=== PATIENT | male | born 1975 | race Caucasian/White ===

== ENCOUNTER 2017-10-16 14:21 | Emergency (ER) | payer SELFPAY ==
[2017-10-16 14:50] VITALS: BP 115/70; PULSE 77; RESP 16; TEMP 36.8; O2SAT 95
--- NOTE | 2017-10-16 15:46 | ED.GENADUL ---
Disposition Clinical Impression: Viral illness Disposition: HOME Condition: Fair Instructions: Viral Syndrome (ED) Additional Instructions: Encourage hydration. Tylenol and/or ibuprofen as needed for discomfort. Stop smoking. You may try heat or ice to affected area to help with discomfort. If you develop fever/chills, swelling, increased, and neck pain or other new/worsening symptoms please seek care urgently once again. Please follow-up with primary care in 1 week if symptoms persist. Referrals: Bryan Mcguire, [Primary Care Provider] - Medical Decision Making - Lab Data POC Strep Test-SHARAN(Rapid) Start: 10/16/17 14:49 Freq: .Rapid Strep Test Status: Active Document 10/16/17 14:57 MM (Rec: 10/16/17 14:57 MM [id number]) Strep test-SHARAN(Rapid)-POC POC-Strep test-SHARAN (Rapid) Negative - Medical Decision Making Patient presents today with chief complaint of left jaw pain. He reports that pain has been migratory for the past 3 days. The pain is been in this location since this morning. On exam, no acute abnormalities noted. Pain is not elicited with palpation. He has good range of motion of his jaw. No swelling. No discoloration. No signs of trauma. No pain with palpation of dictation. He has good bite strength with no discomfort with chewing. No nuchal rigidity. No rash. He appears nontoxic with stable vital signs. Advised that he may have a viral illness that is causing his discomfort. I do not see any signs of acute bacterial infection. I do not see evidence of infection in the salivary gland. I advised that he should try to watch and wait approach. His pain is migratory questioning if this may be just the beginning of the jaw pain and that has not been able to clear its true diagnosis as of yet. Encourage hydration. Tylenol and/or ibuprofen as needed for discomfort. We discussed new/worsening symptoms when to seek care urgently once again. All his questions and concerns were addressed and he is in agreement this plan. Advise follow-up with primary care in 1 week for reevaluation if symptoms persist. History of Present Illness - General Chief complaint: Sorethroat Stated complaint: SORE THROAT AND JAW Time Seen by Provider: 10/16/17 15:46 Source: patient, family, RN notes reviewed Mode of arrival: ambulatory Limitations: no limitations - History of Present Illness Initial comments: 21-year-old male presenting today with chief complaint of left jaw pain. He reports that he has had waxing and waning sore throat for the past 3 days. States that initially started on the left side of his throat, then migrated to the right. States that now this sore throat has subsided but he is now having some left-sided lower jaw pain. No swelling. No fevers or chills. Denies any difficulty swallowing. States he also had a low-grade headache. Denies any neck pain, no nuchal rigidity. Denies any rash. No visual change. Denies any cough. No ear pain. Denies any GI upset. Patient is an active smoker. - Related Data Multivits,Ca,Min/Iron/FA/Lycop [Centrum Ultra Men's Tablet] 1 each PO DAILY 05/29/14 Psyllium Husk (with Sugar) [Metamucil Powder] 2 tbsp PO BID PRN 03/10/16 Allergies Allergy/AdvReac Type Severity Reaction Status Date / Time No Known Allergies Allergy Unverified 10/16/17 14:54 Review of Systems Constitutional: no symptoms reported. denies: chills, fever, malaise Eyes: denies: eye pain, eye discharge ENT: as per HPI Respiratory: no symptoms reported. denies: cough, shortness of breath Cardiovascular: denies: chest pain Gastrointestinal: denies: abdominal pain, nausea, vomiting Skin: denies: rash Neurological: as per HPI Past Medical History - Past Medical History Medical history: no medical history - Social History Smoking status: current everyday smoker General Exam - General Limitations: no limitations General appearance: alert, in no apparent distress - Head Head exam: Present: atraumatic - Eye Eye exam: Present: normal apperance - ENT ENT exam: Present: normal exam, normal orophraynx, mucous membranes moist, TM's normal bilaterally, normal external ear exam, other (Patient has discomfort elicited with palpation along the lower left side of his mandible. No swelling. No discoloration. No pain with palpation of the buccal side of the gumline. No swelling under the tongue. Oropharynx is normal. No pain on palpation over the parotid gland. No swelling in this area.) - Neck Neck exam: Present: normal inspection, full ROM. Absent: tenderness, meningismus, lymphadenopathy - Respiratory Respiratory exam: Present: normal lung sounds bilaterally. Absent: respiratory distress - Cardiovascular Cardiovascular Exam: Present: regular rate, normal rhythm, normal heart sounds - Neurological Exam Neurological exam: Present: alert, normal gait - Psychiatric Psychiatric exam: Present: normal affect, normal mood - Skin Skin exam: Present: warm, dry, intact, normal color Course Vital Signs - 24 hr 10/16/17 14:50 Temperature 36.8 C Pulse 77 Respiratory 16 Rate Blood Pressure 115/70 Pulse Oximetry 95
--- NOTE | 2017-10-19 09:48 | ED.FU.B ---
- Follow Up Follow Up Plan: Patients throat cultures was positive for strep group C. I spoke with Jonathan on the phone and he states he feels well and has absolutely no pain, fevers, dyspnea or difficulty swallowing. Advised he doesn't require abx given no symptoms now, all questions answered. He was advised he could return or see his pcp if he has return of symptoms
== END 2017-10-16 15:59 | disposition home or self-care (01) ==
PROVIDERS: Emergency Provider Physician Assistant; PCP Emergency Medicine
DX: B34.9 Viral infection, unspecified (principal); R68.84 Jaw pain
CPT/HCPCS: 87880; 99283; 87081; 99282

== ENCOUNTER 2019-03-27 22:35 | Emergency (ER) | payer MEDICAID, SELFPAY ==
[2019-03-27 22:41] VITALS: BP 138/87; PULSE 99; RESP 16; TEMP 36.6; O2SAT 97
--- NOTE | 2019-03-27 23:03 | ED.GENADUL_ITS ---
Discharge Plan Disposition Patient Disposition: HOME Condition: Fair Discharge Details Chief Complaint: Nk/Back Pain Clinical Impression: Acute neck pain Primary Care Provider: Bryan Mcguire ED Provider: Aruna Albright Home Meds and New Rx's Prescriptions: Continued Centrum Ultra Men's 1 EACH tablet 1 ea PO DAILY RF: 0 Metamucil (with sugar) 822 GM powder 2 tbs PO BID PRN RF: 0 No Action amoxicillin-pot clavulanate [Augmentin] 500-125 mg tablet 1 tab PO BID Qty: 10 RF: 0 naproxen 500 mg tablet 500 mg PO BID Qty: 20 RF: 0 methocarbamol 500 mg tablet 500 mg PO QID Qty: 30 RF: 0 diazepam [Valium] 5 mg tablet 5 mg PO TID PRN (Reason: muscle spasm) Qty: 9 RF: 0 Discharge Instructions Instructions: Cyclobenzaprine (By mouth), Neck Pain (ED) Additional Instructions: Encourage water intake. Encourage gentle stretching. Massage affected area. Heat or ice. May continue with Tylenol and/or Ibuprofen as needed for discomfort. Next dosing of Ibuprofen may be at 7AM. Please do not exceed 4,000mg of Tylenol daily. Please take the Flexeril as prescribed for muscle spasm. Do not drive while taking this medication. Please follow up with primary care at the end of the week for reevaluation. Referral for ENT has been sent. If you develo fevers/chills, inability to stay hydrated or other new/worsening symptoms please seek care urgently once again Stop smoking. Referrals: Bryan Mcguire DO [Primary Care Provider] - Carlos Thomson MD [ [facility]] - Discharge Data Discharge Date/Time-TO BE ENTERED AT DEPARTURE: 03/28/19 01:20 Medical Decision Making Patient is a pleasant 43-year-old [id number] male presents today with chief complaint of left sided neck pain. He reports that he had a similar episode like this 2 weeks ago which resolved after approximately 3 days. However, patient reports that he awoke this morning with much more severe pain that has been unrelenting. He has not attempted any medical management of this. He denies any trauma. Denies any fevers or chills. Patient is not an IV drug user. He has had multiple surgeries this year without any infection of the right hand. States that the pain can radiate up to his head but is more scalp tenderness than headache. Denies any visual changes. No weakness. He endorses sore throat and difficulty swallowing with this. He denies having difficulty swallowing when he had similar symptoms 2 weeks ago. He denies any numbness or tingling in the extremities, no weakness in the extremities. Has not noted any rash. No shortness of breath or chest pain. On exam, the patient appears nontoxic. He does appear uncomfortable and is moving with a stiff neck. No palpable or visible abnormalities noted on exam. He has full flexion with no nuchal rigidity but very limited extension secondary to the pain in the left side of his neck. He does endorse midline discomfort but he seems to have have more pain over the mastoid and left anterior aspect of the neck. His lungs are clear. Neuro exam is intact. Patient's history is most consistent with muscular strain. However, with the pain coming on the anterior aspect of the pain endorsing pain and swelling, I feel that CT to evaluate for other underlying etiology is appropriate at this point. See no evidence outwardly of difficulty swallowing, he is handling secretions well. I do not see any evidence to suggest respiratory distress. No evidence of sublingual swelling, evidence of an abscess. There is no trismus. No nuchal rigidity, no evidence of meningitis. Plan for labs and imaging. Discussed this plan with patient is in agreement. Labs reviewed, patient has some more leukocytosis a white count of 12.3. Potassium slightly low at 3.2. AST is 51, patient does admit to drinking. CRP is slightly elevated at 1.08. ESR is normal at 13. CT reviewed by radiologist: FINDINGS: Nasopharynx: Unremarkable. Oropharynx: [id number] tonsillar enlargement. Hypopharynx: Unremarkable Larynx: Unremarkable. Normal epiglottis. Retropharyngeal space: Question minimal retropharyngeal fluid Submandibular/Parotid glands: Normal. Glands are normal in size. Thyroid: Normal. No enlarged or calcified nodules. Lymph nodes: Unremarkable. No lymphadenopathy. Trachea: Visualized trachea is unremarkable. Lungs: Unremarkable as visualized. Bones/joints: Unremarkable. No acute fracture. Soft tissues: No collection or mass subjacent to the radiopaque marker No significant soft tissue swelling. IMPRESSION: No collection or mass subjacent to the left-sided radiopaque marker Mild to moderate tonsillar enlargement without definite abscess Question minimal retropharyngeal fluid versus edema. Patient is feeling improved after acetaminophen, Valium, Toradol lidocaine patch. However, continues to have some mild discomfort, particular movement of the neck. Discussed the findings of the CT with Dr. Salinas. He advised that this retropharyngeal fluid versus edema is likely irritation associated with patient being a smoker. This point, I feel patient is appropriate for discharge with close follow-up. Again, symptoms are most likely associated with muscular strain. Patient however does have some mild findings on his CT and a mild leukocytosis. Discussed with Dr. Salinas if we should begin antibiotics and he advised to wait watch and wait approach at this point. Patient was given strict return precautions. Encourage hydration. Will prescribe Flexeril to help with any recurrent muscle spasm. Will refer patient to ENT for further evaluation of his findings on CT. Encourage smoking cessation. All of his questions and concerns were addressed and he is in agreement this plan. HPI General Mode of arrival: ambulatory . Date/Time Provider Initiated Documentation: 03/27/19 23:03 . Limitations to Documentation: no limitations . Information obtained by: patient and family . History of Present Illness 43 year old M presents to the emergency department with the chief complaint of left neck pain, described as severe, with intensity rated at 9. Quality is described as stabbing, and is localized to the neck. Patient reports radiation to (into the head and anterior neck). Patient started experiencing this hour(s) and it has been constant. Immobilization improves symptom(s), Movement worsens symptoms . Patient notes headaches (pain radiates to tony left side of his head); denies chest pain, cough, diaphoresis, fever/chills, loss of appetite, nausea/vomiting, rash, shortness of breath and weakness. Patient did receive the following treatments prior to arrival, none Related Data Home Medications Medication Instructions Recorded Confirmed Centrum Ultra Men's 1 ea PO DAILY 05/29/14 03/30/19 Metamucil (with sugar) 2 tbs PO BID PRN 03/10/16 03/30/19 diazepam [Valium] 5 mg PO TID PRN #9 tab 03/28/19 03/30/19 amoxicillin 500 mg-potassium 1 tab PO BID #10 tab 03/30/19 03/30/19 clavulanate 125 mg tablet methocarbamol 500 mg tablet 500 mg PO QID #30 tab 04/05/19 04/05/19 naproxen 500 mg tablet 500 mg PO BID #20 tab 04/05/19 04/05/19 Previous Rx's Medication Instructions Recorded diazepam [Valium] 5 mg PO TID PRN #9 tab 03/28/19 amoxicillin 500 mg-potassium 1 tab PO BID #10 tab 03/30/19 clavulanate 125 mg tablet methocarbamol 500 mg tablet 500 mg PO QID #30 tab 04/05/19 naproxen 500 mg tablet 500 mg PO BID #20 tab 04/05/19 Allergies Allergy/AdvReac Type Severity Reaction Status Date / Time No Known Allergies Allergy Verified 04/05/19 15:16 General Stated Complaint: Nk/Back Pain FIONA: 4 Review of Systems Constitutional Constitutional: Reports as per HPI, Denies chills, Denies fatigue, Denies fe nabor(s), Denies frequent falls and Reports headache(s) Eyes Eyes: Denies change in vision ENT Ears, Nose, Mouth, and Throat: Denies change in voice, Reports dysphagia, Denies dizziness, Denies ear discharge, Reports headache(s), Denies hoarseness, Denies mouth lesions, Denies mouth pain, Denies neck mass, Reports neck pain and Reports sore throat Cardiovascular Cardiovascular: Denies chest pain, Denies dyspnea and Denies dyspnea on exertion Respiratory Respiratory: Denies cough, Denies dyspnea and Denies dyspnea on exertion Gastrointestinal Gastrointestinal: Denies abdominal pain, Denies change in bowel habits, Reports dysphagia and Denies fecal incontinence Genitourinary Genitourinary: Reports as per HPI, Denies urinary hesitancy and Denies urinary incontinence Musculoskeletal Musculoskeletal: Reports as per HPI, Denies abnormal gait, Reports back pain (neck pain), Denies joint swelling, Reports limited range of motion, Denies muscle cramps, Denies muscle weakness, Reports neck pain, Denies numbness, Denies radiating pain into limb, Reports stiffness and Denies tingling Integumentary/Breasts Skin/Breast: Reports as per HPI and Denies rash Neurologic Neurologic: Reports as per HPI, Denies abnormal gait, Denies dizziness, Denies frequent falls, Reports headache(s), Denies focal weakness, Denies numbness, Denies radicular pain, Denies sensory deficit, Denies tingling and Denies paresthesias Endocrine Endocrine: Denies fatigue PFSH Family History Mother Hyperlipidemia Father Neoplasm LIVER/TRANSPLANT Asthma Sister No problems noted. Sister Depression Asthma Brother No problems noted. Grandfather Leukemia Grandfather Heart disease SMOKER Grandmother Heart disease HEART FAILURE/SMOKER Grandmother Stroke Son No problems noted. Son No problems noted. Social History Smoking/Tobacco Use Status: Current every day Alcohol Intake: current Alcohol Intake frequency: 0-2 drinks per day Drug use: Occasionally Substance use type: marijuana Do you feel safe at home: Yes Do you feel safe in your relationship?: Yes Exam Const General: cooperative, healthy appearing, comfortable, no acute distress, well developed and well groomed Nutritional Appearance: average body habitus and well nourished Orientation: alert and awake [facility] Head: normal to inspection, no palpable skull fracture, normocephalic, atraumatic, no scalp tenderness and no temporal artery tenderness Ears: hearing grossly normal bilaterally, external ears normal, TM's normal bilaterally, mastoids abnormal (left sided mastoid tenderness) and no periauricular adenopathy General nose exam: external nose normal Face and sinus: normal facial exam, sinuses nontender and face symmetric Mouth: oral mucosae normal, lip normal, tongue normal, salivary ducts normal, oropharynx normal, moist mucous membranes, no muffled voice, no trismus and No restricted motion Teeth and gingiva: dentition normal Throat: posterior oropharynx normal, tonsils normal and uvula midline Eyes General: appearance normal, both eyes and all related structures Neck Neck: normal visual inspection, limited ROM, no lymphadenopathy, no meningeal signs, trachea midline, supple, no anterior neck swelling, no midline deformity, tender, no torticollis and No submandibular swelling Thyroid: thyroid normal Carotids: normal carotid upstroke Lymphatic: no lymphadenopathy noted Resp Effort & Inspection: normal respiratory effort and able to speak in complete sentences Auscultation: clear to auscultation bilaterally, no rales, no rhonchi and no wheezes Cardio Rate: regular rate Rhythm: regular rhythm Heart Sounds: S1 normal and S2 normal Back/Spine/Pelvis Back: no CVA tenderness Cervical Spine: normal cervical lordosis, No cervical ROM normal (full flexion, minimal extension, limited rotational movments), cervical muscular tenderness, pain with cervical ROM, No cervical spasm, cervical spinal tenderness and No step off deformity Thoracic/Lumbar Spine: thoracic and lumbar spine normal to inspection Skin General skin exam: no rashes or lesions noted Neuro General: alert, awake, oriented x3, gait normal, tone normal, moves all extremities, normal light touch, pain and propioception, no meningeal signs, no focal motor deficits and CN's II-XI intact bilaterally Cranial Nerves: CN's II-XI intact bilaterally Cognition: normal cognition Speech: speech normal Gait: normal gait Motor: muscle tone normal throughout, strength 5/5 throughout, no movement abnormalities noted and no fasciculations Sensory Exam: no sensory deficits noted (no saddle paresthesias) DTR's: Rt Triceps: 2+, Lt Triceps: 2+, Rt Biceps: 2+, Lt Biceps: 2+, Rt Brachioradialis: 2+ and Lt Brachioradialis: 2+ Extrem General: normal to inspection, full ROM, normal capillary refill, no joint enlargement, no pedal edema, no calf tenderness and normal gait Psych Appearance: grossly normal and well kempt Mental Status: mental status grossly normal Speech and Movement: speech and movement normal Course Vital Signs Vital signs: Vital Signs Temperature 36.6 C 03/27/19 22:41 Pulse 99 H 03/27/19 22:41 Respiratory Rate 16 03/27/19 22:41 Blood Pressure 138/87 03/27/19 22:41 Pulse Oximetry 97 03/27/19 22:41 Temperature 36.6 C 03/27/19 22:41 Temperature Source Temporal Artery Scan 03/27/19 22:41 Pulse 99 H 03/27/19 22:41 Respiratory Rate 16 03/27/19 22:41 Respiratory Effort Non-Labored 03/27/19 22:44 Blood Pressure 138/87 03/27/19 22:41 Blood Pressure Position Sitting 03/27/19 22:41 Pulse Oximetry 97 03/27/19 22:41 Oxygen Delivery Method Room Air 03/27/19 22:41 Oxygen Flow Rate 0 03/27/19 22:41 Pain Level 9 03/27/19 22:41
[2019-03-27] MEDS: diazePAM 10 MG/2 ML SYR 5 MG IVP (23:38)
[2019-03-27] MEDS: Normal Saline 1,000 ML 1000 ML IV (23:39)
[2019-03-27 23:45] LABS: Abs Immature Grans 0.03 k/cumm (0.0-0.09); Absolute Eosinophil Count 0.22 k/cumm (0.0-0.7); Absolute Neutrophil Count 9.09 k/cumm (1.2-6.7); Basophils % 0.2; Eosinophils % 1.8; Immature Grans % 0.2 %; Lymphocytes % 17.8; Mean Corp. HGB Concentration 34.9 g/dL (32.0-36.0); Mean Corpuscular Hemoglobin 31.8 pg (27.0-33.0); Mean Corpuscular Volume 91.3 fL (80-95); Mean Platelet Volume 9.5 fL (8.0-11.0); Monocytes % 6.5; Neutrophils % 73.5; Platelet Count 244 x1000/uL (130-400); RBC 4.71 m/cumm (4.50-6.00); RBC Distribution Width 12.7 % (11.8-14.1); White Blood Cell Count 12.37 k/cumm (4.4-10.8)
[2019-03-27] MEDS: Omnipaque 350 MG/ML 100 ML BTL IJ (23:48)
[2019-03-27 23:49] LABS: Absolute Basophil Count 0.02 k/cumm (0.0-0.2)
[2019-03-27 23:57] LABS: ALT 44 U/L (16-63); AST 51 U/L (15-37); Albumin 3.6 g/dL (3.4-5.0); Alkaline Phosphatase 115 U/L (46-116); Anion Gap 12.4 mmol/L (3-11); BUN 5 mg/dL (7-18); Bilirubin, Total 0.3 mg/dL (0.2-1.0); C-Reactive Protein 1.08 mg/dL (0.0-0.3); CO2 25.6 mmol/L (21.0-32.0); CREATININE 0.61 mg/dL (0.70-1.30); Calcium 8.5 mg/dL (8.5-10.1); Chloride 99 mmol/L (98-107); Glucose 121 mg/dL (74-106); Potassium 3.2 mmol/L (3.5-5.1); Sodium 137 mmol/L (136-145); Total Protein 7.6 g/dL (6.4-8.2)
--- NOTE | 2019-03-27 23:58 | DI.CT_ITS ---
EXAM: CT NECK W CLINICAL HISTORY: left sided pain with swallowing. TECHNIQUE: Imaging Protocol: Axial computed tomography images with coronal and sagittal reformatted images were created and reviewed CONTRAST MATERIAL: Intravenous: Omnipaque 350 Contrast volume:100 mL contrast route:IV - Oral: No COMPARISON: No exams were available for comparison FINDINGS: Parotids/submandibular/thyroid gland: Normal. Lymphadenopathy: There is scattered lymph nodes seen along the level one to level three all measurin g less than 8 mm in short axis diameter which are physiologic in nature. Carotids/Jugular: Within normal limits. Soft tissues: The floor the mouth is unremarkable. The epiglottis and vocal cords are within normal limits. The nasopharynx, hypopharynx and larynx are unremarkable. There is mild to moderate tonsilla r enlargement in the oropharynx. Retropharyngeal space is unremarkable. Trachea: Unremarkable. Bones: Unremarkable. Soft tissues: A marker was placed in the posterior left neck in the area of concern. No soft tissue abnormality is identified in this region. No soft tissue mass or focal fluid collection is appreciat ed. IMPRESSION: 1. No soft tissue abnormality seen in the left posterior neck in the area of the radiopaque marker. 2. Mild enlargement of the tonsillar tissue with no abscess. DATA REPOSITORY: All CT scans at this facility are submitted to the National Radiology Data Registry (NRDR) Dose Index Registry (DIR) with the [employer] (ACR). RADIATION OPTIMIZATION: All CT scans at this facility use at least one of these dose optimization te chniques: automated exposure control; mA and/or kV adjustment per patient size (includes targeted exa ms where dose is matched to clinical indication); or iterative reconstruction.
--- NOTE | 2019-03-28 00:14 | DI.VRAD_ITS ---
PROCEDURE INFORMATION: Exam: CT Neck With Contrast Exam date and time: 03/27/2019 11:56 PM Age: 43 years old Clinical indication: Neck pain and painful swallowing; Patient HX: Pain and swelling left side of neck, behind ear, base of skull and down through neck, pain with swallowing TECHNIQUE: Imaging protocol: Computed tomography images of the neck with intravenous contrast. Radiation optimization: All CT scans at this facility use at least one of these dose optimization techniques: automated exposure control; mA and/or kV adjustment per patient size (includes targeted exams where dose is matched to clinical indication); or iterative reconstruction. Contrast material: OMNIPAQUE 350; Contrast volume: 100 ml; Contrast route: IV RAC; COMPARISON: No relevant prior studies available. FINDINGS: Nasopharynx: Unremarkable. Oropharynx: [id number] tonsillar enlargement. Hypopharynx: Unremarkable Larynx: Unremarkable. Normal epiglottis. Retropharyngeal space: Question minimal retropharyngeal fluid Submandibular/Parotid glands: Normal. Glands are normal in size. Thyroid: Normal. No enlarged or calcified nodules. Lymph nodes: Unremarkable. No lymphadenopathy. Trachea: Visualized trachea is unremarkable. Lungs: Unremarkable as visualized. Bones/joints: Unremarkable. No acute fracture. Soft tissues: No collection or mass subjacent to the radiopaque marker No significant soft tissue swelling. IMPRESSION: No collection or mass subjacent to the left-sided radiopaque marker Mild to moderate tonsillar enlargement without definite abscess Question minimal retropharyngeal fluid versus edema. Dictated and Authenticated by: Arpan Oviedo MD. Ordering:KAREEN Valdovinos MD
[2019-03-28 00:24] LABS: ESR 13 mm/hr (0-15)
[2019-03-28] MEDS: ACETAMINOPHEN 1,000 MG/100 ML BTL 400 MG IVPB (00:50)
[2019-03-28] MEDS: Ketorolac 30 MG/ML VIAL IVP (00:55)
[2019-03-28] MEDS: Lidocaine 5% Patch 1 PATCH TP (01:00)
--- NOTE | 2019-03-28 01:03 | NUR.NOTE ---
Nursing Note: faxed and noted to primary and ent on 03/28/19
[2019-03-28] MEDS: Cyclobenzaprine 10 MG TAB 20 MG PO (01:06)
[2019-03-28] MEDS: Lidocaine 2% Viscous 15 ML CUP PO (01:19)
[2019-03-28 01:20] VITALS: BP 121/67; PULSE 86; RESP 20; TEMP 36.6; O2SAT 97
== END 2019-03-28 01:20 | disposition home or self-care (01) ==
PROVIDERS: Emergency Provider Physician Assistant; PCP Emergency Medicine
DX: M54.2 Cervicalgia (principal)
CPT/HCPCS: 36415; 70491; 80053; 85652; 96361; 96365; 96375; 99285; 85025; 86140; J0131; J1885; J3360; J3490

== ENCOUNTER 2019-03-28 18:55 | Emergency (ER) | payer MEDICAID, SELFPAY ==
[2019-03-28 19:10] VITALS: BP 145/85; PULSE 90; RESP 16; TEMP 36.8; O2SAT 99
--- NOTE | 2019-03-28 19:20 | W.ED.GENAD ---
Discharge Plan Disposition Patient Disposition: HOME Condition: Stable Discharge Details Chief Complaint: Nk/Back Pain Clinical Impression: Neck pain Primary Care Provider: Bryan Mcguire ED Provider: Claudia Cummings Home Meds and New Rx's Prescriptions: New diazepam [Valium] 5 mg tablet 5 mg PO TID PRN (Reason: muscle spasm) Qty: 9 RF: 0 Continued Centrum Ultra Men's 1 EACH tablet 1 ea PO DAILY RF: 0 Metamucil (with sugar) 822 GM powder 2 tbs PO BID PRN RF: 0 Discontinued cyclobenzaprine 10 mg tablet 10 mg PO TID PRN (Reason: muscle spasm) Qty: 10 RF: 0 No Action amoxicillin-pot clavulanate [Augmentin] 500-125 mg tablet 1 tab PO BID Qty: 10 RF: 0 Discharge Instructions Instructions: Diazepam (By mouth), Neck Pain (ED) Additional Instructions: Please return immediately to the emergency department if you develop any new or worsening symptoms, if your condition does not improve as expected, or if you become otherwise concerned. It is extremely important that you call soon as possible to make an appointment to be seen in follow-up for this visit by your primary care doctor and an orthopedic surgeon. You may take ibuprofen 600 mg 3 times a day for pain. You may take up to 4000 mg per day of Tylenol. Please stop taking cyclobenzaprine. Valium can can be very dangerous when using combination with other medications or substances that cause you to become tired as we discussed. Please do not drink alcohol, take Benadryl, take opiate pain medications, or take any other sedating medications or substances within 6 hours of taking Valium. Do not take Valium while taking cyclobenzaprine. Please do not drive, make important decisions, operate machinery, or care for young children while taking Valium until you know how the medication affects you. Stand Alone Forms: Work Release Referrals: Bryan Mcguire DO [Primary Care Provider] - Cirilo Cantu MD [ [facility] STAFF PHYSICIAN] - Discharge Data Discharge Date/Time-TO BE ENTERED AT DEPARTURE: 03/28/19 20:30 Medical Decision Making Jonathan Lomax is a 43-year-old man without reported major medical problems who presented to the emergency department with left neck pain after being seen for same here last night, discharged after extensive work-up. On exam patient is very well and nontoxic appearing, although he does appear uncomfortable with movement of his neck. Patient is hypertensive with otherwise normal vital signs there is diffuse mild tenderness that does not reproduce his pain of the left neck including occiput. No overlying skin changes of the neck. Range of motion severely limited secondary to pain. Normal exam of the oropharynx without drooling or pooling of secretions, normal voice. Patient underwent lab testing, CT neck with contrast last night, these were nondiagnostic. Unclear etiology of pain at this time, concern for possible torticollis. Exam/history in conjunction with results from testing on prior exam, particular given that patient reports that his symptoms have not changed at all from last night and his pain has not worsened, are not consistent with abscess, myositis, discitis, mastoiditis, meningitis, sepsis, acute emergent carotid pathology, impending airway compromise, other acute emergent life-threatening process. Plan for IM dexamethasone, Valium, soft collar, close outpatient follow-up. I had a lengthy discussion with Patient regarding safe Valium use, discontinuation of Flexeril while taking Valium, return to emergency department precautions, home care, and importance of outpatient follow-up. Pt verbalizes understanding of the plan and is amenable. Patient discharged to home with clear plan for outpatient follow-up. All questions were answered. Disposition decision was made weighing the risks and benefits of hospitalization versus outpatient treatment, the risk for further decompensation, and the patient's wishes. Medical Records Medical records reviewed: Yes I reviewed the patient's medical records. HPI General Mode of arrival: ambulatory. Date/Time Provider Initiated Documentation: 03/28/19 18:59. Limitations to Documentation: no limitations. Information obtained by: patient, family, RN notes reviewed and old records reviewed. HPI Narrative: Jonathan Lomax is a 43 y/o man without reported history of major medical problems presenting to emergency room with neck pain. Patient reports he was seen here yesterday for same. Patient reports that since he was discharged home last night, he has had no worsening or improvement in his symptoms, symptoms have remained exactly the same, and thus he decided come back to emergency department. Patient reports pain in the posterior left of his neck that radiates into the proximal aspect of his left shoulder. He reports that he first noticed the pain when he woke up yesterday morning, pain seemed to worsen somewhat throughout the day yesterday. Patient reports that pain is worse when he tries to move his neck in any direction and also when he swallows. Patient reports that when he swallows, he feels pain in the outside left of his neck, and not in his throat. He denies any other pain, numbness, weakness, fever, vomiting, diarrhea, shortness of breath, cough, rash. Patient reports that he has been eating and drinking as usual. He denies any trauma. No recent illness. No recent travel. Related Data Home Medications Medication Instructions Recorded Confirmed Centrum Ultra Men's 1 ea PO DAILY 05/29/14 03/30/19 Metamucil (with sugar) 2 tbs PO BID PRN 03/10/16 03/30/19 diazepam [Valium] 5 mg PO TID PRN #9 tab 03/28/19 03/30/19 amoxicillin 500 mg-potassium 1 tab PO BID #10 tab 03/30/19 03/30/19 clavulanate 125 mg tablet Previous Rx's Medication Instructions Recorded diazepam [Valium] 5 mg PO TID PRN #9 tab 03/28/19 amoxicillin 500 mg-potassium 1 tab PO BID #10 tab 03/30/19 clavulanate 125 mg tablet Allergies Allergy/AdvReac Type Severity Reaction Status Date / Time No Known Allergies Allergy Verified 03/30/19 09:59 General Stated Complaint: Nk/Back Pain FIONA: 4 Review of Systems Narrative: Constitutional: denies fevers Eyes: denies eye pain ENT: denies ear pain, dental pain, sore throat Cardiovascular: denies chest pain Respiratory: denies SOB, cough GI: denies abdominal pain, vomiting, diarrhea : denies flank pain MSK: denies back pain, arthralgias, myalgias, reports neck pain Skin: denies rash Neuro: denies headaches, numbness, weakness PFSH Family History Mother Hyperlipidemia Father Neoplasm LIVER/TRANSPLANT Asthma Sister No problems noted. Sister Depression Asthma Brother No problems noted. Grandfather Leukemia Grandfather Heart disease SMOKER Grandmother Heart disease HEART FAILURE/SMOKER Grandmother Stroke Son No problems noted. Son No problems noted. Social History Smoking/Tobacco Use Status: Current every day Alcohol Intake: current Alcohol Intake frequency: 0-2 drinks per day Drug use: Occasionally Substance use type: marijuana Do you feel safe at home: Yes Do you feel safe in your relationship?: Yes Exam Narrative Exam Narrative: Constitutional: well and [id number], pleasant, conversing normally HENT: head atraumatic/normocephalic/normal inspection, mucous membranes moist, normal exam of the posterior pharynx without erythema or edema, uvula midline, no intraoral lesion, TMs and canals normal bilaterally, external ears normal bilaterally, mild mastoid tenderness to palpation on the left that does not reproduce pain without warmth or overlying erythema/edema, mastoid tenderness is nonfocal and equal to tenderness elicited with palpation of left neck, no facial edema, no left preauricular tenderness to palpation, no tenderness to palpation of the left TMJ, no drooling, no pooling of secretions, normal voice Eyes: conjunctiva normal, sclera normal, pupils 3mm b/l Neck: no stridor, trachea midline, diffuse mild tenderness to palpation of the left occipital area, left lateral and left posterior neck including left cervical paraspinals that does not reproduce pain and has no focal areas of increased severity, no apparent muscle spasm, no erythema, edema or overlying skin changes of the anterior, left lateral, or posterior neck, range of motion significantly limited in all directions secondary to pain Resp: normal work of breathing, LCTAB Cardio: normal rate, normal rhythm, no murmur appreciated Skin: warm, dry, normal color, no rash Neuro: alert, not altered, cranial nerves II through XII intact, normal sensation bilateral upper extremities, motor 5 out of 5 bilateral upper extremities, normal tone, normal gait Ext: Moving all extremities equally Psych: normal mood, normal affect, normal behavior Course Vital Signs Vital signs: Vital Signs Temperature 36.8 C 03/28/19 19:10 Pulse 90 03/28/19 19:10 Respiratory Rate 16 03/28/19 19:10 Blood Pressure 145/85 H 03/28/19 19:10 Pulse Oximetry 99 03/28/19 19:10 Temperature 36.8 C 03/28/19 19:10 Temperature Source Temporal Artery Scan 03/28/19 19:10 Pulse 90 03/28/19 19:10 Respiratory Rate 16 03/28/19 19:10 Blood Pressure 145/85 H 03/28/19 19:10 Blood Pressure Position Sitting 03/28/19 19:10 Pulse Oximetry 99 03/28/19 19:10 Oxygen Delivery Method Room Air 03/28/19 19:10 Oxygen Flow Rate 0 03/28/19 19:10 Pain Level 10 03/28/19 19:10
[2019-03-28] MEDS: diazePAM 5 MG TAB PO (19:56)
[2019-03-28] MEDS: Dexamethasone 10 MG/ML VIAL IM (20:03)
== END 2019-03-28 20:30 | disposition home or self-care (01) ==
PROVIDERS: Emergency Provider Student in an Organized Health Care Education/Training Program; PCP Emergency Medicine
DX: M54.2 Cervicalgia (principal); R03.0 Elevated blood-pressure reading, without diagnosis of hypertension
CPT/HCPCS: 96372; 99284; 99283; J1100

== ENCOUNTER 2024-08-15 07:55 | Emergency (ER) | payer MEDICAID, SELFPAY ==
--- NOTE | 2024-08-15 07:56 | W.ED.GENAD ---
Discharge Plan Disposition Patient Disposition: Home Condition: Good Discharge Details Clinical Impression: Injury of foot, right Primary Care Provider: Cb Beltran ED Provider: Aruna Albright Home Meds and New Rx's Prescriptions: No Action No Known Home Meds Discharge Instructions Instructions: Walking Boot, Foot Sprain ED Additional Instructions: As we discussed, you are leavign prior to completion of your imaging. The initial x-ray review has prompted me to get a weight bearing x-ray. Please keep boot on, continue with crutches, until we talk again. After you have completed your physical therapy appointment, please call the ER at [phone] so we can discuss the results further. There is a chance you will need to return based on these results. Please encourage rest, ice, elevation. Tylenol and/or Ibuprofen as needed for discomfort. We will discuss follow up recommendations further once you call the department again. Discharge Data Discharge Date/Time-TO BE ENTERED AT DEPARTURE: 08/15/24 09:16 HPI General Date/Time Provider Initiated Documentation: 08/15/24 07:56. Limitations to Documentation: no limitations. Information obtained by: patient and RN notes reviewed. History of Present Illness 48 year old M presents to the emergency department with the chief complaint of right foot pain after tripping and kicking door frame, described as moderate, with intensity rated at 6. Quality is described as aching, and is localized to the right and lower extremity. Patient reports no radiation. Patient started experiencing this day(s) (injured yesterday) and it has been constant. Immobilization improves symptom(s), Movement worsens symptoms . Patient notes no other symptoms.. Patient did receive the following treatments prior to arrival, none Related Data Home Medications ?Medication ?Instructions ?Recorded ?Confirmed Unknown [No Known Home Meds] 08/15/24 08/15/24 Allergies Allergy/AdvReac Type Severity Reaction Status Date / Time No Known Allergies Allergy Verified 08/15/24 08:04 General FIONA: 4 Review of Systems Constitutional Constitutional: Reports as per HPI, Denies fever(s), Denies headache(s) and Denies weakness ENT Ears, Nose, Mouth, and Throat: Denies headache(s) Cardiovascular Cardiovascular: Reports as per HPI Respiratory Respiratory: Reports as per HPI and Denies cough Musculoskeletal Musculoskeletal: Reports as per HPI and Denies tingling Integumentary/Breasts Skin/Breast: Reports as per HPI, Denies rash and Denies wounds Neurologic Neurologic: Reports as per HPI, Denies headache(s), Denies tingling, Denies paresthesias and Denies weakness Exam Const General: cooperative, healthy appearing, comfortable, no acute distress, well developed and well groomed Nutritional Appearance: average body habitus and well nourished Orientation: alert and awake Resp Effort & Inspection: normal respiratory effort, able to speak in complete sentences and no respiratory distress Cardio Rate: regular rate Rhythm: regular rhythm Skin General skin exam: no rashes or lesions noted Lesions: no lesions Rashes: no rashes Trauma: no lacerations or abrasions Neuro General: patient alert and patient awake Cognition: normal cognition Speech: speech normal Gait: gait assisted Method: crutches Motor: muscle tone normal throughout Sensory Exam: no sensory deficits noted Extrem Ankle/foot/toe images: 1. Area of discomfort. No significant swelling, discoloration, break in the skin. 2+ distal pulses. No pain over the proximal fibula. No pain in tony ankle with palpation. Achilles palpated, non-tender, intact with normal Eli. No pain over tony calcaneus or midfoot tendernss. No pain with palpation along the plantar surface. Sesnation intact throughout foot/ankle. No pain in the toes. Maximal tenderness over tony 5th metatarsal with pain on palpation along the distal aspect of the forefoot as well. No visible or palpable deformity. Medical Decision Making Patient is a pleasant 48 year old male presenting today with c/c of right foot pain after injury yesterday. States that he accidentally tripped over his dog and fell forward, striking his right forefoot against the door casing. He denies other injury at the time of the incident, did not strike his head, denies LOC, neck pain, back pain, pain in other extremity. Has been non-weightbearing since and using crutches. Denies numbness/tingling. On exam, patient appears non-toxic. Exam of the RLE reveals it to be neurovascularly intact, no appreciable deficits. No obvious signs of trauma, no swelling, discoloration, deformity. Point tender over 5th metatarsal, distal forefoot. Spares toes, midfoot, calcaneus. Will obtain XR of the foot. Based on areas of discomfort and injury, I do not see need for weight bearing view. No midfoot pain to suggest Lis Franc. No neurologic deficits or vascular injury evident. Concerned for Castellanos fx vs other forefoot fx or contusion. Reviewed images, no fx appreciated. Reevaluated the patient. he is now endorsing more midfoot pain so will obtain WB views as initial were NWB based on mechanism and initial exam. Patient needs to get to PT, has appointment at 0920. He will be d/c'ed to [facility] appointment with boot and on crutches. WB view to assess for Lisfranc injury is pending. We did discuss this type of injury, front desk lead issues with it. He will call the department after to discuss results and continued management. Patient called back, while the NWB views are read, still weight on WB report. Contacted radiologist, he is reviewing the weighted view but advised that hte NWB films were normal without evidence of fx, dislocation or widening. WB films without abnroamlity per radiologist. Palpation again and discussed x-ray. Advise no evidence to suggest Lisfranc injury, fracture or dislocation. Advised likely contusion. Encouraged supportive care. As the pain is quite significant, advised that he can continue with the boot but should follow-up with his primary care. Encourage rest, ice, elevation. Tylenol and/or be Profen as needed for discomfort. Patient has appointment with PCP in a few days- he will discuss f/u with them further. All of his questions and concerns were addressed and he is in agreement this plan. He Quality:[facility] Health Related Social Needs: No Data to Display [facility] All Active Problems (Updated 08/15/24 @ 09:01 by KENDRICK Salguero) Injury of foot, right (Acute) Muscle spasms of neck (Acute) Family History Mother Hyperlipidemia Father Neoplasm LIVER/TRANSPLANT Asthma Sister No problems noted. Sister Depression Asthma Brother No problems noted. Grandfather Leukemia Grandfather Heart disease SMOKER Grandmother Heart disease HEART FAILURE/SMOKER Grandmother Stroke Son No problems noted. Son No problems noted. Social History Smoking/Tobacco Use Status: Current every day Smoking risk assessment performed?: Yes Alcohol Intake: current Alcohol Intake frequency: 0-2 drinks per day Drug use: Occasionally Substance use type: marijuana Do you feel safe at home: Yes Do you feel safe in your relationship?: Yes
[2024-08-15 08:00] VITALS: BP 138/87; PULSE 90; RESP 12; TEMP 37; O2SAT 97
--- NOTE | 2024-08-15 08:37 | DI.RAD_ITS ---
Exam(s) XR FOOT RT COMPLETE EXAM: XR FOOT RT COMPLETE CLINICAL HISTORY: 5th metatarsal pain and forefoot kicked door. TECHNIQUE: 2D digital imaging was performed of the right foot. Three images were obtained. AP, obl ique and lateral views were obtained. COMPARISON: No exams were available for comparison FINDINGS: BONES: No acute fracture is present. No bony destructive lesion is seen. JOINTS: No dislocation present. The joint spaces are well maintained. SOFT TISSUE: Normal. IMPRESSION: There is no acute fracture or dislocation. DATA REPOSITORY: RADIATION DOSE DELIVERED:
--- NOTE | 2024-08-15 08:45 | DI.RAD_ITS ---
Exam(s) XR FOOT RT COMPLETE EXAM: XR FOOT RT COMPLETE CLINICAL HISTORY: weight bearing for forefoot assessment. TECHNIQUE: 2D digital imaging was performed of the right foot. Three images were obtained. AP, obl ique and lateral views were obtained. COMPARISON: CR XR FOOT RT COMPLETE from 08/15/2024 FINDINGS: BONES: No acute fracture is present. No bony destructive lesion is seen. JOINTS: No dislocation present. The joint spaces are well maintained. SOFT TISSUE: Normal. IMPRESSION: Unremarkable radiographs of the right foot. DATA REPOSITORY: RADIATION DOSE DELIVERED:
== END 2024-08-15 09:16 | disposition home or self-care (01) ==
PROVIDERS: Emergency Provider Physician Assistant; PCP Specialist/Technologist Athletic Trainer
DX: S99.821A Other specified injuries of right foot, initial encounter (principal); F17.210 Nicotine dependence, cigarettes, uncomplicated; W22.8XXA Striking against or struck by other objects, initial encounter; Y93.89 Activity, other specified; Y92.018 Other place in single-family (private) house as the place of occurrence of the external cause
CPT/HCPCS: 99283; 73630